=== PATIENT | female | born 1985 | race American Indian/Alaskan Native ===

== ENCOUNTER 2016-05-29 15:30 | Emergency (ER) | payer SELFPAY ==
--- NOTE | 2016-05-29 18:08 | Emergency Department Report ---
ED Back Pain/Injury HPI - General Chief Complaint: Back Pain/Injury Stated Complaint: LBP LEFT SIDE / HEADACHE X 2 WKS Time Seen by Provider: 05/29/16 18:03 Source: patient, family Mode of arrival: Ambulatory Limitations: No Limitations - History of Present Illness Initial Comments: Patient here complaining of lower back pain times one month. Also complaining of headache 2 weeks off-and-on. Patient says she felt her back pain was from having her period but her period is. She still having back pain. Pain is down to lower back located at left flank area. She reports that headache is all over pain is 10 out of 10. Feels achy. She says she took [id number] pain medication but it didn't take her pain away. Denies any urinary burning frequency or urgency. Denies any nausea or vomiting. Denies any fever or chills. Denies any hematuria. Denies any loss of bowel or bladder function. Denies any numbness or tingling to extremities. She denies any neck stiffness or injury. Denies any neck pain. MD Complaint: back pain, other (headache) Onset/Timin -: month(s) Similar Symptoms Previously: Yes Place: home Radiation: none Severity: severe Severity scale (0 -10): 10 Quality: aching Consistency: intermittent Improves With: supine Worsens With: movement, walking Context: unknown Associated Symptoms: headaches. denies: confusion, weakness, chest pain, numbness, difficulty walking, cough, difficulty urinating, diaphoresis, incontinence, fever/chills, constipation, abdominal pain, loss of appetite, malaise, nausea/vomiting, rash, seizure, shortness of breath, syncope Treatments Prior to Arrival: NSAIDS, acetaminophen - Related Data Previous Rx's Medication Instructions Recorded Last Taken Type Acetaminophen/Codeine [Tylenol #3] 1 tab PO Q6H PRN #12 tab 05/29/16 Unknown Rx Cyclobenzaprine [Flexeril] 10 mg PO TID PRN #15 tablet 05/29/16 Unknown Rx Allergies Allergy/AdvReac Type Severity Reaction Status Date / Time No Known Allergies Allergy Unverified 05/29/16 16:16 ED Review of Systems ROS: Stated complaint: LBP LEFT SIDE / HEADACHE X 2 WKS Other details as noted in HPI Comment: All other systems reviewed and negative Constitutional: denies: chills, fever Eyes: denies: eye pain, vision change ENT: denies: congestion Respiratory: no symptoms reported Cardiovascular: denies: chest pain, palpitations, edema, syncope Gastrointestinal: denies: abdominal pain, nausea, vomiting, diarrhea, constipation Genitourinary: denies: urgency, dysuria, frequency, hematuria, discharge Skin: denies: rash Neurological: headache. denies: weakness, numbness, paresthesias, confusion, abnormal gait, vertigo ED Past Medical Hx - Past Medical History Previous Medical History?: No - Surgical History Past Surgical History?: No - Family History Family history: no significant - Social History Smoking Status: Never Smoker Substance Use Type: None - Medications Home Medications: Home Medications Medication Instructions Recorded Confirmed Last Taken Type Acetaminophen/Codeine [Tylenol #3] 1 tab PO Q6H PRN #12 tab 05/29/16 Unknown Rx Cyclobenzaprine [Flexeril] 10 mg PO TID PRN #15 tablet 05/29/16 Unknown Rx ED Physical Exam - General Limitations: No Limitations General appearance: alert, in no apparent distress - Head Head exam: Present: atraumatic, normocephalic, normal inspection - Eye Eye exam: Present: normal appearance, PERRL, EOMI, other. Absent: nystagmus, periorbital swelling, periorbital tenderness (peripheral vision intact) Pupils: Present: normal accommodation - ENT ENT exam: Present: normal exam, normal orophraynx, mucous membranes moist, TM's normal bilaterally, normal external ear exam - Neck Neck exam: Present: normal inspection, full ROM. Absent: tenderness, meningismus, lymphadenopathy, thyromegaly - Expanded Neck Exam Expanded Neck exam: Absent: tenderness, midline deformity, anterior neck swelling, tracheal deviation - Respiratory Respiratory exam: Present: normal lung sounds bilaterally. Absent: respiratory distress, chest wall tenderness - Cardiovascular Cardiovascular Exam: Present: regular rate, normal rhythm, normal heart sounds - GI/Abdominal GI/Abdominal exam: Present: soft, normal bowel sounds. Absent: distended, tenderness, guarding, rebound, rigid - Extremities Exam Extremities exam: Present: normal inspection, full ROM, normal capillary refill. Absent: tenderness, pedal edema, joint swelling, calf tenderness - Back Exam Back exam: Present: normal inspection, full ROM, CVA tenderness (L). Absent: tenderness, CVA tenderness (R), muscle spasm, paraspinal tenderness, vertebral tenderness, rash noted - Expanded Back Exam Expanded Back exam: Absent: saddle anesthesia Back exam: Negative Straight Leg Raising: Left, Right - Neurological Exam Neurological exam: Present: alert, oriented X3, normal gait, reflexes normal. Absent: motor sensory deficit - Expanded Neurological Exam Expanded Neurological exam: Absent: innattentive, memory loss-remote event, memory loss- recent event, ataxia, receptive aphasia, expressive aphasia, total aphasia, tremor, protecting the airway Patient oriented to: Present: person, place, time Speech: Present: fluid speech Cranial nerves: EOM's Intact: Normal, Gag Reflex: Normal, Nystagmus: Normal, Facial Sensation: Normal Cerebellar function: Romberg: Normal Upper motor neuron: Pronator Drift: Normal Sensory exam: Upper Extremity Light Touch: Normal, Upper Extremity Temperature: Normal, UE 2 Point Discrimination: Normal, Lower Extremity Light Touch: Normal, Lower Extremity Temperature: Normal, LE 2 Point Discrimination: Normal Motor strength exam: RUE: 5, LUE: 5, RLE: 5, LLE: 5 DTR: bicep (R): 2+, bicep (L): 2+, tricep (R): 2+, tricep (L): 2+, knee (R): 2+ , knee (L): 2+, ankle (R): 2+, ankle (L): 2+ Best Eye Response (Webb): (4) open spontaneously Best Motor Response (Webb): (6) obeys commands Best Verbal Response (Ramo): (5) oriented Ramo Total: 15 - Psychiatric Psychiatric exam: Present: normal affect, normal mood - Skin Skin exam: Present: warm, dry, intact, normal color. Absent: rash ED Course Vital Signs 05/29/16 16:16 Temperature 98.5 F Pulse Rate 99 H Respiratory 18 Rate Blood Pressure 147/99 O2 Sat by Pulse 100 Oximetry - Reevaluation(s) Reevaluation #1: 05/29/16 19:36 stable throughout ED course. Urinalysis without infection and patient is not Reevaluation #2: 05/29/16 19:54 Patient stable, upon reevaluation her pain is down to 2 out of 10 without any medication ED Medical Decision Making - Lab Data Lab Results 02/11/17 Range/Units 18:33 Urine Color Yellow (Yellow) Urine Turbidity Clear (Clear) Urine pH 7.0 (5.0-7.0) Ur Specific [place] 1.026 (1.003-1.030) Urine Protein <15 mg/dl (Negative) mg/dL Urine Glucose (UA) Neg (Negative) mg/dL Urine Ketones Neg (Negative) mg/dL Urine Blood Neg (Negative) Urine Nitrite Neg (Negative) Urine Bilirubin Neg (Negative) Urine Urobilinogen 2.0 (<2.0) mg/dL Ur Leukocyte Esterase Tr (Negative) Urine WBC (Auto) 2.0 (0.0-6.0) /HPF Urine RBC (Auto) 2.0 (0.0-6.0) /HPF U Epithel Cells (Auto) 1.0 (0-13.0) /HPF Urine Mucus 1+ /HPF Urine HCG, Qual Negative (Negative) Cultures are pending - Medical Decision Making Collaborated with Dr. Welsh on patient complains, presentation physical findings and lab and diagnostic test results. ED course: She here with headache and left flank pain. Analysis of urine reveals no UTI and she is not . Patient neurologically intact therefore The [place] Head CT Rule suggests a head CT is not necessary for this patient . Patient does not meet any of the requirements for CT scan. I explained to patient diagnosis and treatment plan. I also inform her of her urine results. Patient did not receive any medication in emergency room and up and discharge her pain was down to 2 out of 10 without any medication. Patient discharged home with prescription for Tylenol 3 and Flexeril. Discussed with patient that if she continues to have headache that she needs to follow up with neurologist. Patient voiced understanding of discharge instructions. Critical care attestation.: If time is entered above; I have spent that time in minutes in the direct care of this critically ill patient, excluding procedure time. ED Disposition Clinical Impression: Left flank pain Headache Qualifiers: Headache type: unspecified Headache chronicity pattern: acute headache Intractability: not intractable Qualified Code(s): R51 - Headache Lumbar strain Qualifiers: Encounter type: initial encounter Qualified Code(s): S39.012A - Strain of muscle, fascia and tendon of lower back, initial encounter Disposition: DISCHARGED TO HOME OR SELFCARE Is pt being admited?: No Does the pt Need Aspirin: No Condition: Stable Instructions: Muscle Strain (ED), Low Back Strain (ED), Core Strengthening Exercises (GEN), Flank Pain (ED), Acute Headache (ED) Additional Instructions: follow-up with neurologist recommended to use if your headache continues. Followup with orthopedic doctor recommended TU a few back pain continues. If Headache worsens, nausea or vomiting, blurred vision, dizziness, fever and/ or chills, steady gait please return to emergency room as soon as possible otherwise follow-up with your primary care physician and if he do not have one week and follow-up with [facility] . Tylenol 3 will cause drowsiness so please do not drive or operate heavy machinery while taking Tylenol 3 or Flexeril. Prescriptions: Acetaminophen/Codeine [Tylenol #3] 1 tab PO Q6H PRN #12 tab PRN Reason: Headache Cyclobenzaprine [Flexeril] 10 mg PO TID PRN #15 tablet PRN Reason: Muscle Spasm Referrals: ROSEMARY CHAVEZ MD [Staff Physician] - 05/31/16 PRIMARY CAREMD [Primary Care Provider] - 2-3 Days CARLOZ GIBSON MD [Staff Physician] - 3-5 Days [facility] [Outside] - 2-3 Days Forms: Work/School Release Form(ED)
[2016-05-29 19:05] LABS: Bilirubin,Urine NEG (Negative); Blood,Urine NEG (Negative); Ketones,Urine NEG (Negative); Leukocyte Esterase,Urine TR (Negative); Mucus,Urine 1+ /HPF; Nitrite,Urine NEG (Negative); Protein,Urine <15 mg/dL mg/dL (Negative)
[2016-05-29 20:11] VITALS: BP 118/75
== END 2016-05-29 20:12 | disposition home or self-care (01) ==
LOC: ED 15:30
DX: S39.012A Strain of muscle, fascia and tendon of lower back, initial encounter (principal); R51 Headache; R10.9 Unspecified abdominal pain; X58.XXXA Exposure to other specified factors, initial encounter; Y93.89 Activity, other specified; Y99.9 Unspecified external cause status; Y92.009 Unspecified place in unspecified non-institutional (private) residence as the place of occurrence of the external cause
CPT/HCPCS: 81001; 81025; 87086; 99283

== ENCOUNTER 2017-04-04 18:56 | Emergency (ER) | payer OTHER ==
[2017-04-04 19:14] VITALS: BP 128/69
[2017-04-04] MEDS ORDERED: TYLENOL PO ONE (19:17)
[2017-04-04] MEDS ORDERED: TYLENOL ONE (19:19)
[2017-04-04 20:59] LABS: Bilirubin,Urine NEG (Negative); Blood,Urine NEG (Negative); Ketones,Urine TR mg/dL (Negative); Leukocyte Esterase,Urine NEG (Negative); Mucus,Urine FEW /HPF; Nitrite,Urine NEG (Negative); Protein,Urine <15 mg/dL mg/dL (Negative); Urobilinogen,Urine < 2.0 mg/dL (<2.0)
[2017-04-05] MEDS ORDERED: ZOFRAN ODT PO ONE (00:46)
[2017-04-05] MEDS ORDERED: MOTRIN PO ONE (00:46)
--- NOTE | 2017-04-05 02:17 | Emergency Department Report ---
HPI - General Chief Complaint: Upper Respiratory Infection Time Seen by Provider: 04/05/17 00:42 - HPI HPI: Pt reports that she's been having headache, body ache, nausea, cough and nonproductive cough with body aches 10 out of 10 and aching. That started this morning. She denies any vomiting. Denies any blurred vision. Denies any dizziness. Mom said that she till Tylenol at home but she does not feel any better. Nothing makes it better and nothing makes it worse. She said that her daughter has been sick over the weekend and even though her daughters getting better she think that she got the flu from her daughter. Says that she has poor appetite and has been drinking a little but not able to drink a lot of fluids due to nausea. Denies any abdominal pain. Denies any chest pain or shortness of breath. ED Past Medical Hx - Past Medical History Previous Medical History?: No - Surgical History Past Surgical History?: Yes Additional Surgical History: - Family History Family history: no significant - Social History Smoking Status: Never Smoker Substance Use Type: None - Medications Home Medications: Home Medications Medication Instructions Recorded Confirmed Last Taken Type Acetaminophen/Codeine [Tylenol #3] 1 tab PO Q6H PRN #12 tab 05/29/16 Unknown Rx Cyclobenzaprine [Flexeril] 10 mg PO TID PRN #15 tablet 05/29/16 Unknown Rx Cetirizine HCl [ZyrTEC] 10 mg PO QAM 14 Days #14 tab.rapdis 04/05/17 Unknown Rx Fluticasone [Flonase] 1 spray NS QDAY 1 Days #1 bottle 04/05/17 Unknown Rx Ibuprofen [Motrin] 600 mg PO Q8H PRN 4 Days #12 tablet 04/05/17 Unknown Rx Oseltamivir [Tamiflu] 75 mg PO BID 5 Days #10 cap 04/05/17 Unknown Rx Promethazine [Phenergan TAB] 25 mg PO Q8HR PRN 5 Days #15 tab 04/05/17 Unknown Rx guaiFENesin/CODEINE [Robitussin AC] 10 ml PO QHS PRN 7 Days #70 04/05/17 Unknown Rx oral.liqd ED Review of Systems ROS: Stated complaint: FLU LIKE SYMPTOMS Other details as noted in HPI Comment: All other systems reviewed and negative Constitutional: chills Eyes: denies: eye discharge ENT: congestion Respiratory: cough. denies: orthopnea, shortness of breath, SOB with exertion, SOB at rest, stridor, wheezing Cardiovascular: denies: chest pain, palpitations, dyspnea on exertion, edema, syncope, paroxysmal nocturnal dyspnea Gastrointestinal: nausea. denies: vomiting, diarrhea, constipation, hematemesis , melena, hematochezia Genitourinary: denies: urgency, dysuria, frequency, hematuria, discharge, abnormal menses, dyspareunia Musculoskeletal: myalgia. denies: back pain, joint swelling, arthralgia Skin: denies: rash, pruritus Neurological: headache, weakness. denies: numbness, paresthesias, confusion, abnormal gait, vertigo Physical Exam - Physical Exam Vital Signs: Vital Signs 04/04/17 04/04/17 19:12 19:30 Temperature 98.7 F Pulse Rate 123 H Respiratory 18 18 Rate Blood Pressure 128/69 O2 Sat by Pulse 100 Oximetry General: This is a 32-year-old female well-nourished well-developed that appear ill but nontoxic in appearance Physical Exam: Head: Normocephalic atraumatic Ears:BIateral TM congested without erythema and loss of bony landmarks. Julio EAC with normal exam. No mastoid bone tenderness. Mouth: Moist, no pharyngeal erythema or exudate . No tonsillar erythema or exudate. UVULA midline and oral airways patent. No peritonsillar abscess Neck: Nontender to palpate, supple, normal range of motion. No adenopathy. No c- spine tenderness. Nose: Bilateral nasal mucosa congested with erythema and clear drainage. Maxillary and frontal sinuses non-tender to palpate. Abdomen: Nontender to palpate in all quadrants, no guarding or rebound tenderness. Normal bowel sounds in all quadrants. No CVA tenderness. Eyes: Sclerae and conjunctiva without injection. Bilateral pupils equal and reactive to light. Bilateral lids are normal. Normal accommodation.BEOMI Lungs: Clear to auscultate bilaterally, no rhonchi wheezes or rales. Normal work of breathing and no chest wall tenderness. Patient with dry cough Extremity: Clubbing, cyanosis or edema. +2 pulses to all extremities and no neurovascular compromise. Patient with +5 strength in all extremities and she is able to ambulate without any difficulties. CV: S1, S2. She had tachycardic ,Regular rhythm negative murmur. Capillary refill is less than 3 seconds Skin: Clean dry and intact, no rashes or lesions Psych: Normal mood and behavior ED Course Vital Signs 04/04/17 12 19:12 19:30 Temperature 98.7 F Pulse Rate 123 H Respiratory 18 18 Rate Blood Pressure 128/69 O2 Sat by Pulse 100 Oximetry Vital Signs 04/04/17 04/04/17 04/05/17 19:12 19:30 02:21 Temperature 98.7 F Pulse Rate 123 H 88 Respiratory 18 18 18 Rate Blood Pressure 128/69 O2 Sat by Pulse 100 98 Oximetry - Reevaluation(s) Reevaluation #1: 04/05/17 02:46 Given Tylenol 650 mg in triage area. She remains afebrile in the emergency room. She was also given Motrin 800 mg and Zofran 8 mg ODT. Patient able to tolerate oral liquids in the emergency room without any vomiting. ED Medical Decision Making - Lab Data Influenza A positive and B is negative - Medical Decision Making ED course: Sent with presentation of flulike symptoms that she says she was exposed to her daughter that was sick this weekend. Patient with cough, congestion and body aches. Influenza A is positive and influenza B negative. I discussed the patient's treatment plan to include Tamiflu and gave her the choice whether she wants to take this medication or to rest and take Motrin and increase her fluid intake and let's viral syndrome run its course. Patient preferred to be started on Tamiflu. I discussed with her that Tamiflu does not take away from symptoms completely but it can decrease the number of days that she has symptoms. I also discussed with her that this is not guaranteed. Patient voiced understanding in his discharge instructions, medication and treatment planned and also need to follow-up. He is given Tylenol 650 mg in triage area for body ache and an headache and Motrin 800 mg later on in ED room along with Zofran and a grams ODT for nausea which relieved her nausea and body ache. Patient able to tolerate oral liquids in the emergency room without any vomiting. I discussed with her that she needs to rest for the rest of the week , increase her fluid intake and take vitamin C as a immune booster. Discharged home in stable condition with prescription for Tamiflu, Phenergan, guaifenesin and codeine cough syrup , Motrin, Zyrtec and Flonase. Critical care attestation.: If time is entered above; I have spent that time in minutes in the direct care of this critically ill patient, excluding procedure time. ED Disposition Clinical Impression: Influenza A, Acute viral syndrome, Body aches, Cough in adult patient Disposition: DC-01 TO HOME OR SELFCARE Is pt being admited?: No Does the pt Need Aspirin: No Condition: Stable Instructions: Influenza (ED), Viral Syndrome (ED), Acute Cough (ED) Additional Instructions: Please follow up with primary care as recommended Increase fluid intake Take medication as prescribed . please do not drive or operate heavy machinery while taking guaifenesin with codeine if this medication causes drowsiness Please rest and take vitamin C and this will help to posterior immune system and help you recover quickly. The flu is contagious please stay home and avoid interaction with other individuals until you feel better Take Tamiflu as prescribed Prescriptions: guaiFENesin/CODEINE [Robitussin AC] 10 ml PO QHS PRN 7 Days #70 oral.liqd PRN Reason: Cough Cetirizine HCl [ZyrTEC] 10 mg PO QAM 14 Days #14 tab.rapdis Fluticasone [Flonase] 1 spray NS QDAY 1 Days #1 bottle Ibuprofen [Motrin] 600 mg PO Q8H PRN 4 Days #12 tablet PRN Reason: Pain Oseltamivir [Tamiflu] 75 mg PO BID 5 Days #10 cap Promethazine [Phenergan TAB] 25 mg PO Q8HR PRN 5 Days #15 tab PRN Reason: Nausea Referrals: your, primary care physician [Other] - 2-3 Days [facility] [Outside] - 2-3 Days Forms: Work/School Release Form(ED)
== END 2017-04-05 03:08 | disposition home or self-care (01) ==
LOC: ED 18:56
DX: J09.X2 Influenza due to identified novel influenza A virus with other respiratory manifestations (principal); B34.9 Viral infection, unspecified
CPT/HCPCS: 81001; 81025; 87400; 99283; Q0162